=== PATIENT | male | born 1965 | race Native Hawaiian/Other Pacific Islander ===

== ENCOUNTER 2017-05-14 09:10 | Emergency (ER) | payer OTHER ==
[2017-05-14 09:19] VITALS: BP 132/88; PULSE 70; RESP 16; TEMP 97.8; O2SAT 98
[2017-05-14] MEDS ORDERED: Lidocaine 5% Patch TD STA (09:33)
[2017-05-14] MEDS ORDERED: Lidocaine 5% Patch TD ONE (09:39)
--- NOTE | 2017-05-14 10:22 | C.PDOC ---
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 Patient states the pain is 10/10 and worse with movement. Patient reports the pain is in the lower mid lumbar area, across the spine to the bilateral sides. Patient denies radiation to the leg, chest pain, neck pain, headache, weakness or numbness. Time Seen by Provider: 05/14/17 09:19 Chief Complaint (Nursing): Back Pain History Per: Patient History/Exam Limitations: no limitations Onset/Duration Of Symptoms: Sudden Onset ([employer]END[employer]) Current Symptoms Are (Timing): Still Present Quality Of Discomfort: Sharp Past Medical History Reviewed: Historical Data, Nursing Documentation, Vital Signs Vital Signs: Last Vital Signs Temp 97.8 F 05/14/17 09:17 Pulse 70 05/14/17 09:17 Resp 16 05/14/17 09:17 BP 132/88 05/14/17 09:17 Pulse Ox 98 05/14/17 10:31 - Medical History PMH: HTN Family History: States: No Known Family Hx - Social History Hx Alcohol Use: No Hx Substance Use: No - Immunization History Hx Tetanus Toxoid Vaccination: No Hx Influenza Vaccination: No Hx Pneumococcal Vaccination: No Review Of Systems Except As Marked, All Systems Reviewed And Found Negative. Cardiovascular: Negative for: Chest Pain Musculoskeletal: Positive for: Back Pain (Lower mid lumbar area). Negative for : Neck Pain Neurological: Negative for: Weakness, Numbness, Headache Physical Exam - Physical Exam Appears: Non-toxic, No Acute Distress Skin: Warm, Dry, No Rash Head: Atraumatic, Normacephalic Neck: Normal, Normal ROM, Supple Chest: Symmetrical, No Tenderness Cardiovascular: Rhythm Regular, No Murmur Back: Normal Inspection, No CVA Tenderness, No Paraspinal Tenderness Extremity: Normal ROM, No Swelling Neurological/Psych: Oriented x3, Normal Speech, Normal Motor ED Course And Treatment O2 Sat by Pulse Oximetry: 98 (RA) Pulse Ox Interpretation: Normal Medical Decision Making Medical Decision Making: PLAN: * Lidoderm TD * Motrin PO * Tylenol PO * Valium PO Disposition Counseled Patient/Family Regarding: Diagnosis, Need For Followup, Rx Given - Disposition Referrals: [facility] [Outside] Disposition: HOME/ ROUTINE Disposition Time: 10:23 Condition: STABLE Additional Instructions: Take medications as indicated. Follow up with your doctor, or call [facility] to help you locate a physician. Prescriptions: diaZEpam [Valium] 5 mg PO TID #15 tab Ibuprofen [Motrin] 600 mg PO TID #15 tab Lidocaine 5% [Lidoderm] 1 ea TD DAILY #2 patch Instructions: Lumbar Radiculopathy (ED), Muscle Spasm (ED), Back Exercises (ED) Forms: General Discharge Instructions, [facility] ([facility]), Work Excuse - POA Present On Arrival: None - Clinical Impression Clinical Impression: Low back pain, Lumbar sprain - Scribe Statement The provider has reviewed the documentation as recorded by the Aguilar Johnson Provider Attestation: All medical record entries made by the Mickibleelee were at my direction and personally dictated by me. I have reviewed the chart and agree that the record accurately reflects my personal performance of the history, physical exam, medical decision making, and the department course for this patient. I have also personally directed, reviewed, and agree with the discharge instructions and disposition.
== END 2017-05-14 10:33 | disposition home or self-care (01) ==
LOC: C.ER 09:10
DX: S33.5XXA Sprain of ligaments of lumbar spine, initial encounter (principal); X58.XXXA Exposure to other specified factors, initial encounter; M54.5 Low back pain